=== PATIENT | male | born 1965 | race Two or more races ===

== ENCOUNTER 2021-04-10 10:00 | Inpatient (IN) | payer OTHER ==
[~2021-04-10] VITALS: Ht 175.3 cm; Wt 99.8 kg
[2021-05-06] MEDS ORDERED: AMPICILLIN TRI500 MG PO (13:28)
[2021-05-06] MEDS ORDERED: FLAGYL500MG PO (13:28)
[2021-05-06] MEDS ORDERED: ULTRACET PO (13:29)
[2021-05-06] MEDS ORDERED: PANTOPRAZOLE SO40 MG PO (13:29)
[2021-05-06] MEDS ORDERED: INTESTINEX680 M1 PO (13:29)
== END 2021-05-06 15:03 | disposition home or self-care (01) | DRG 329 ==
LOC: SURH 04-15 07:19 → O/R 04-15 07:19 → SURH 04-15 09:00
PROVIDERS: ADMIT Surgery; ATTEND Surgery
PROC: 0DTP4ZZ Resection of Rectum, Percutaneous Endoscopic Approach (ICD-10-PCS; 2021-04-15)
PROC: 07BC4ZX Excision of Pelvis Lymphatic, Percutaneous Endoscopic Approach, Diagnostic (ICD-10-PCS; 2021-04-15)
PROC: 0DBN4ZZ Excision of Sigmoid Colon, Percutaneous Endoscopic Approach (ICD-10-PCS; 2021-04-15)
PROC: 3E0F7SF Introduction of Other Gas into Respiratory Tract, Via Natural or Artificial Opening (ICD-10-PCS; 2021-04-15)
PROC: 0D1B4Z4 Bypass Ileum to Cutaneous, Percutaneous Endoscopic Approach (ICD-10-PCS; principal; 2021-04-15 09:00)
PROC: 0W9J30Z Drainage of Pelvic Cavity with Drainage Device, Percutaneous Approach (ICD-10-PCS; 2021-04-30)
DX: C19 Malignant neoplasm of rectosigmoid junction (principal); J18.9 Pneumonia, unspecified organism; K65.1 Peritoneal abscess; A40.3 Sepsis due to Streptococcus pneumoniae; J98.11 Atelectasis; N17.8 Other acute kidney failure; K91.89 Other postprocedural complications and disorders of digestive system; N18.2 Chronic kidney disease, stage 2 (mild); E66.8 Other obesity; F17.200 Nicotine dependence, unspecified, uncomplicated; Z20.822 Contact with and (suspected) exposure to COVID-19; R09.02 Hypoxemia; Y83.2 Surgical operation with anastomosis, bypass or graft as the cause of abnormal reaction of the patient, or of later complication, without mention of misadventure at the time of the procedure; D69.59 Other secondary thrombocytopenia; Z68.32 Body mass index [BMI] 32.0-32.9, adult

== ENCOUNTER 2022-06-12 11:00 | Inpatient (IN) | payer OTHER ==
[~2022-06-12] VITALS: Ht 175.3 cm; Wt 104.3 kg
[~2022-06-12 11:00] MED LIST: AMPICILLIN TRI500 MG PO; FLAGYL500MG PO; INTESTINEX680 M1 PO; PANTOPRAZOLE SO40 MG PO; ULTRACET PO
[2022-06-19] MEDS ORDERED: MIRALAX17 GM PO (08:01)
[2022-06-19] MEDS ORDERED: INTESTINEX680 M1 PO (08:01)
[2022-06-19] MEDS ORDERED: PERCOCET 5-3251 EACH PO (08:01)
== END 2022-06-19 09:42 | disposition home or self-care (01) | DRG 348 ==
LOC: SURH 06-16 05:39 → O/R 06-16 05:39 → SURH 06-16 10:08 → SURG-SUITE 06-16 11:00 → SURH 06-19 09:42
PROVIDERS: ADMIT Surgery; ATTEND Surgery
PROC: 0DBB4ZZ Excision of Ileum, Percutaneous Endoscopic Approach (ICD-10-PCS; principal; 2022-06-16 13:30)
DX: Z43.2 Encounter for attention to ileostomy (principal); C19 Malignant neoplasm of rectosigmoid junction; R59.0 Localized enlarged lymph nodes; Z20.822 Contact with and (suspected) exposure to COVID-19